=== PATIENT | female | born 1940 | race Caucasian/White ===

== ENCOUNTER → 2018-03-06 13:50 | Outpatient (CLI) | payer MEDICARE, OTHER, SELFPAY ==
--- NOTE | 2018-03-06 13:54 | DI.MG.S_ITS ---
UNILATERAL LEFT DIGITAL DIAGNOSTIC MAMMOGRAM POST LUMPECTOMY SHORT-TERM FOLLOW-UP: 03/06/2018 CLINICAL: Patient returns for a 6 month follow up of the left breast. Post biopsy. Personal history of breast cancer. Family history of breast cancer. Comparison is made to exams dated: 09/21/2017 mammogram, 08/31/2017 mammogram, and 08/21/2017 mammogram - [facility]. The tissue of the left breast is heterogeneously dense. This may lower the sensitivity of mammography. There is a biopsy clip in the left breast. No significant masses, calcifications, or other findings are seen in the breast. There has been no significant interval change. IMPRESSION: NEGATIVE There is no mammographic evidence of malignancy. A 1 year screening mammogram is recommended. This exam was interpreted at Station ID: [id number]. NOTE: For mammograms, a report in lay terms will be sent to the patient. Approximately 15% of breast malignancies will not be visualized mammographically. In the management of a palpable breast mass, a negative mammogram must not discourage biopsy of a clinically suspicious lesion. Electronically Signed By: Destiny sherwood/dylon:03/06/2018 14:58:27 copy to: Neto Uribe copy to: Spencer Dobbs letter sent: Normal Exam ACR BI-RADS Category 1: Negative 3341F
== END ==
PROVIDERS: PCP Family Medicine; Visit Provider Family Medicine
DX: Z08 Encounter for follow-up examination after completed treatment for malignant neoplasm (principal); Z85.3 Personal history of malignant neoplasm of breast; Z80.3 Family history of malignant neoplasm of breast
CPT/HCPCS: 77065; G0279

== ENCOUNTER 2018-05-17 10:36 | Day surgery (SDC) | payer MEDICARE, OTHER, SELFPAY ==
--- NOTE | 2018-05-17 | PATH_ITS ---
[facility] Accession Number: [id number] . 01 Material submitted: . PART A: DUODENAL BIOPSY PART B: GASTRIC BIOPSY PART C: GE JUNCTION BIOPSY . 02 Diagnosis: A. Biopsies, Duodenum: Fragments of normal-appearing small bowel mucosa. Normal delicate mucosal villi present. Negative for significant inflammation, dysplasia and malignancy. . B. Gastric Biopsies: Mild chronic gastritis involving antral mucosa. Negative for evidence of Helicobacter on H/E stain. Negative for intestinal metaplasia. Negative for dysplasia and malignancy. . C. GE Junction Biopsies: Fragments of squamous mucosa and gastric fundic-type mucosa with mild chronic inflammation. Negative for specialized metaplasia of Lockett's-type esophagus. Negative for evidence of Helicobacter on H/E stain. Negative for dysplasia and malignancy. Negative for squamous intraepithelial eosinophils. . 05/18/2018 . 02 Electronically signed: . Jesse Tony MD, Pathologist NPI- [id number] . 01 Gross description: . Received three formalin-filled containers each labeled with the patient's name. . A. In a container labeled duodenal, the specimen consists of a 0.3 cm portion of tissue. Entirely submitted in cassette A. B. In a container labeled gastric are two 0.1 to 0.3 cm portions of tissue. Entirely submitted in cassette B. C. In a container labeled GE junction are four fragments of tissue, which range in size from 0.1 to 0.4 cm. Entirely submitted in cassette C. ([facility] [place]:[id number]) /[facility] . 02 Pathologist provided ICD-10: K29.70 . 02 CPT . 319668, 420786, 513557 Performed at: [address] [facility] [place] [id number] MD Yahir Herrera MD Phone: [phone] Performed at: 02 [facility] [address] [place] [id number] MD Joce Keene MD Phone: [phone]
[2018-05-17 10:49] VITALS: BMI 35.2
[2018-05-17 11:01] VITALS: BP 123/74; PULSE 76; RESP 20; TEMP 36.3; O2SAT 95
[2018-05-17] MEDS: fentaNYL 250 MCG/5 ML INJ IV (11:02)
[2018-05-17] MEDS: SODIUM CHLORIDE 0.9% 1,000 ML 200 ML IV (11:03)
[2018-05-17] MEDS: MIDAZOLAM 5 MG/5 ML VIAL IV (11:03)
--- NOTE | 2018-05-17 11:04 | PM.PREOP ---
Pre-operative Note Interval Note Pre-op Check: Yes History & Physical Reviewed by Physician Changes: No
--- NOTE | 2018-05-17 11:32 | PM.OP.1 ---
Operative Date/Time/Diagnoses Date of procedure: 05/17/18 Time of procedure: 11:32 Pre-op diagnosis: Abdominal pain Gastroesophageal reflux disease Post-op diagnosis: same Procedure & Clinicians Procedure: Esophagogastroduodenoscopy with biopsies Same procedure as scheduled: Yes Indications: Progressive reflux symptoms on a maximum medication Surgeon: Avelina Urena Click Yes if Unassisted: Yes Anesthesia Type: Sedation Operative Notes Findings: 1. Normal duodenum 2. Mild antral gastritis 3. 5 cm hiatal hernia with the GE junction at 34 cm from the incisors 4. Irregular Z-line 5. Normal esophageal mucosa 6. Normal posterior oropharynx and vocal cords Closure Type: not applicable Specimen(s): other (Duodenum, antrum, GE junction-all cold forceps biopsies) Estimated Blood Loss (mL): 2 Procedure in detail: After obtaining informed consent, the patient was brought to the GI suite and placed in the left lateral decubitus position on the examination table. After placement of appropriate monitors, the patient was given incremental doses of Versed and Fentanyl until an appropriate level of sedation was achieved. A time out was held per SCOAP protocol. A bite block was gently placed between the patient's teeth. The endoscope was lubricated and then passed into the patient's posterior oropharynx. The esophagus was cannulated under direct vision and the scope was passed to the second portion of the duodenum without difficulty. The scope was then withdrawn with careful examination of all areas of the upper GI tract and mucosa. In the stomach, the instrument was retroflexed and the GE junction examined. The scope was straightened and the procedure continued with examination of the remainder of the upper GI tract. Findings are noted above. Air was aspirated from the stomach and the endoscope gently removed from the esophagus. The patient was allowed to awaken from sedation without difficulty and taken to the post-anesthesia care unit in good condition. Total sedation time 13 min Complications: none Condition: stable Disposition: PACU Plan for aftercare: 1. Discharge to home 2. We will contact you with pathology results and recommendations
[2018-05-17 11:41] VITALS: BP 112/75; PULSE 70; RESP 16; TEMP 36.6; O2SAT 98
[2018-05-17 11:46] VITALS: BP 98/70; PULSE 72; RESP 16
[2018-05-17 11:51] VITALS: BP 83/49; PULSE 73; RESP 16
[2018-05-17 11:54] VITALS: BP 118/68; PULSE 74; RESP 16; TEMP 36.8
[2018-05-17 12:05] VITALS: BP 131/70; PULSE 72; RESP 18; TEMP 36.7; O2SAT 95
== END 2018-05-17 12:18 | disposition home or self-care (01) ==
LOC: ENDO 10:37
PROVIDERS: PCP Family Medicine; Visit Provider Surgery
PROC: 0DJ08ZZ Inspection of Upper Intestinal Tract, Via Natural or Artificial Opening Endoscopic (ICD-10-PCS; CPT 43235; principal; 2018-05-17 12:00)
DX: K29.70 Gastritis, unspecified, without bleeding (principal); K21.9 Gastro-esophageal reflux disease without esophagitis; K44.9 Diaphragmatic hernia without obstruction or gangrene
CPT/HCPCS: 43239; 88305; 99152; J2250; J3010

== ENCOUNTER → 2018-09-27 11:01 | Outpatient (CLI) | payer MEDICARE, OTHER, SELFPAY ==
[2018-09-27 11:35] LABS: Add Manual Diff / Slide Review NO; Basophils Percent Auto 0.9 % (0-2); Eosinophils Percent Auto 3.2 % (2-4); Hematocrit 43.3 % (36-46); Hemoglobin 14.7 g/dL (12.0-16.0); Lymphocytes Percent Auto 33.8 % (25-40); Mean Corpuscular HGB Conc 33.9 % (30-36); Mean Corpuscular Hemoglobin 30.4 PG (26-34); Mean Corpuscular Volume 89.7 fL (80-100); Monocytes Percent Auto 9.4 % (3-14); Neutrophils Absolute Auto 2600 /uL (1500-7000); Neutrophils Percent Auto 52.7 % (50-75); Platelet Count 189 X10^3/uL (150-400); Red Blood Cell Count 4.82 X10^6/uL (4.0-5.2); Red Cell Distribution Width 14.9 % (11.6-14.8)
[2018-09-27 12:02] LABS: Alanine Aminotransferase 20 IU/L (9-52); Albumin 4.6 g/dL (3.5-5.0); Albumin Globulin Ratio 1.3 (1.0-2.8); Alkaline Phosphatase 63 U/L (38-126); Aspartate Aminotransferase 32 IU/L (14-36); BUN Creatinine Ratio 23.3 (6-22); Bilirubin Total 0.6 mg/dL (0.2-1.3); Blood Urea Nitrogen 21 mg/dL (7-17); Calcium 9.6 mg/dL (8.4-10.2); Carbon Dioxide 31 mmol/L (22-32); Chloride 98 mmol/L (98-107); Estimated Glomerular Filt Rate > 60.0 mL/min (>60); Globulin 3.5 g/dL (1.7-4.1); Glucose 109 mg/dL (80-110); HEMOLYSIS < 15 (0-50); Potassium 3.7 mmol/L (3.4-5.1); Sodium 143 mmol/L (137-145); Total Protein 8.1 g/dL (6.3-8.2)
[2018-09-28 15:13] LABS: Cancer Antigen 27.29 40 U/mL (< 38)
== END ==
PROVIDERS: Nurse Practitioner Gerontology; Family Provider Family Medicine; PCP Family Medicine; Visit Provider Internal Medicine Hematology & Oncology
DX: R89.7 Abnormal histological findings in specimens from other organs, systems and tissues (principal); Z86.000 Personal history of in-situ neoplasm of breast
CPT/HCPCS: 36415; 80053; 85025; 86300

== ENCOUNTER → 2018-10-13 10:44 | Outpatient (CLI) | payer MEDICARE, OTHER, SELFPAY ==
--- NOTE | 2018-10-13 11:00 | DI.MG.S_ITS ---
Patient Name: JAROCHO LEYVA date: 1940 Sex: F Attending Physician: David Indications: Date: 10/13/2018 11:00 At the request of: STEVE ROCHA Procedure: MM screening mammo BI BILATERAL DIGITAL SCREENING MAMMOGRAM 3D/2D WITH CAD POST LUMPECTOMY: 10/13/2018 CLINICAL: Routine screening. Personal history of left breast cancer. Family history of breast cancer. Comparison is made to exams dated: 08/21/2017 mammogram, 08/19/2016 mammogram, mammogram, and 08/18/2015 mammogram - Located [facility]. The tissue of both breasts is heterogeneously dense. This may lower the sensitivity of mammography. Current study was also evaluated with a Computer Aided Detection (CAD) system. There are stable benign dystrophic calcifications in both breasts. There is a stable benign post-surgical scar in the left breast at 2 o'clock middle depth. This correlates to post-operative changes. No other significant masses, calcifications, or other findings are seen in either breast. IMPRESSION: There is no mammographic evidence of malignancy. A 1 year screening mammogram is recommended. This exam was interpreted at Station ID: [id number]. NOTE: For mammograms, a report in lay terms will be sent to the patient. Approximately 15% of breast malignancies will not be visualized mammographically. In the management of a palpable breast mass, a negative mammogram must not discourage biopsy of a clinically suspicious lesion. Electronically Signed By: Nando ridley/dylon:10/13/2018 14:30:08 copy to: Neto Uribe Continued Report - Page 2 of 2 Patient Name: JAROCHO LEYVA date: 1940 Sex: F Attending Physician: David Indications: Date: 10/13/2018 11:00 At the request of: STEVE ROCHA Procedure: MM screening mammo BI letter sent: Normal Exam ACR BI-RADS Category 2: Benign Finding(s) 3342F
== END ==
PROVIDERS: Family Provider Family Medicine; PCP Family Medicine; Visit Provider Internal Medicine Hematology & Oncology
DX: Z12.31 Encounter for screening mammogram for malignant neoplasm of breast (principal); Z85.3 Personal history of malignant neoplasm of breast; Z80.3 Family history of malignant neoplasm of breast
CPT/HCPCS: 77063; 77067

== ENCOUNTER 2019-11-09 11:51 | Emergency (ER) | payer MEDICARE, OTHER, SELFPAY ==
[2019-11-09 11:51] VITALS: BP 135/90; PULSE 87; RESP 16; TEMP 36.7; O2SAT 97; BMI 33.3
--- NOTE | 2019-11-09 12:12 | ED_ITS ---
HPI - Syncope General Chief Complaint: Syncope Stated Complaint: syncope, fall Time Seen by Provider: 11/09/19 11:52 Source: EMS Mode of arrival: EMS History of Present Illness HPI narrative: 79-year-old woman with a history of breast cancer, peptic ulcer disease and recent issues with diarrhea. She was in her usual state of health this morning and went to the exchange at the [employer]. She and her were standing at the counter to pay her describes her insert drifting forward scraping her nose on the edge of the counter and then slumping to the floor. He was standing immediately by her side and helped her down so there's no significant trauma. He describes no seizure-like activity, no loss of bowel or bladder and spontaneous return of consciousness within minutes. She was completely back to normal alert and cognitively appropriate by time medics arrived. She has little memory of the event does not describe any palpitations or pain prior to the event nor any current leak. Her states that she was pale and diaphoretic during the event. Aside from the diarrhea that has been worked up and for which she is currently waiting for approval for ?a very expensive antibiotic? (? oral vanco?) She describes no chest pain, shortness of breath, urinary symptoms, or abdominal pain Related Data Home Medications Medication Instructions Recorded Confirmed CHOLECALCIFEROL (VITAMIN D3) 5,000 iu PO QDAY #0 07/11/12 10/28/19 (Vitamin D) Restasis 0.05 mg OP DAILY #0 07/11/12 10/28/19 ezetimibe [Zetia] 10 mg PO Q DAY #0 07/11/12 10/28/19 fenofibrate nanocrystallized 145 mg PO QDAY #0 07/11/12 10/28/19 [Tricor] gabapentin [Neurontin] 300 mg PO QDAY #0 07/11/12 10/28/19 hydrocortisone [Proctozone-HC] 2.5 % QDAY #0 07/11/12 10/28/19 hydrocortisone valerate 0.2 % QDAY #0 07/11/12 10/28/19 paroxetine HCl [Paxil] 10 mg PO QDAY #0 07/11/12 10/28/19 TRIAMCINOLONE ACETONIDE (TRIDERM 0.1 % TOPICAL BID #0 10/16/13 01/27/20 0.1% OINT) mupirocin 2 % TOPICAL DAILY #22 gm 07/17/13 10/28/19 cyanocobalamin (vitamin B-12) 1,000 mcg PO QDAY #0 05/18/16 10/28/19 potassium chloride [Klor-Con M20] 20 meq PO AMCC #0 tab 05/18/16 10/28/19 triamterene-hydrochlorothiazid 1 cap PO QDAY #0 cap 05/18/16 10/28/19 hydrochlorothiazide 50 mg tablet 50 mg PO DAILY 05/07/18 10/28/19 pantoprazole 40 mg tablet,delayed 40 mg PO DAILY 05/07/18 10/28/19 release ranitidine HCl 150 mg capsule 150 mg PO DAILY 05/07/18 10/28/19 venlafaxine 37.5 mg 37.5 mg PO BID cap 05/07/18 10/28/19 capsule,extended release 24 hr colestipol 1 g PO DAILY 10/28/19 10/28/19 ondansetron HCl [Zofran] 4 mg PO Q8H 10/28/19 10/28/19 Allergies Allergy/AdvReac Type Severity Reaction Status Date / Time aspirin Allergy Verified 11/09/19 12:08 Penicillins Allergy Verified 11/09/19 12:08 ragweed pollen Allergy Verified 11/09/19 12:08 atorvastatin [ATORVASTATIN] AdvReac Unknown Verified 11/09/19 12:08 plastic gloves AdvReac Uncoded 11/09/19 12:08 plastic tape AdvReac Uncoded 11/09/19 12:08 Review of Systems Review of Systems Narrative: All systems reviewed and are unremarkable except as noted in HPI and below Patient History Medical History Breast cancer (Acute) Esophageal varices (Acute) Peptic ulcer disease (Inactive) Surgical History History of knee replacement (Acute) Social History household members: spouse Smoking Status: Former smoker Smoking Status: Former smoker Alcohol type: beer Substance Use Type: does not use Exam Narrative Exam Narrative: General: Healthy appearing, in no acute distress. Able to give a complete and coherent history. Well-nourished well-developed HEENT: Moist mucous membranes, normal sclera with reactive pupils, minor abrasion over the bridge of her nose from her glasses Neck: No JVD, supple Respiratory: Lungs are clear to auscultation, no wheezing no rales no rhonchi. Full and symmetrical air movement Cardiac: Regular rate and rhythm no murmurs no bruits Abdomen: Soft nontender good bowel tones, no flank pain Skin: Warm and dry, no rashes Neurologic: Grossly neurologically intact with no obvious asymmetries or abnormalities Extremities: No trauma, well perfused, chronic 1+ edema. 1+ edema of upper extremities as well Psych: Cooperative, appropriate insight and affect Initial Vital Signs Initial Vital Signs: Vital Signs Temperature 98.0 F 11/09/19 11:51 Pulse Rate 87 11/09/19 11:51 Respiratory Rate 16 11/09/19 11:51 Blood Pressure 135/90 11/09/19 11:51 Pulse Oximetry 97 11/09/19 11:51 Course Course Course Narrative: 13:15 Work up is reassuring. Re-eval after 500cc fluid in. Feeling better. HR in bed is 66, standing at bedside up to 101. Will give full L of fluid, allow her to eat and drink and recheck 1400 HR laying down 75, standing and walking 80. Feeling better. Safe for home d/c Orders Ordered: ED Orders 11/09/19 12:05 EKG-12 Lead Stat 11/09/19 12:30 Complete Blood Count AUTO DIFF Stat Comprehensive Metabolic Panel Stat D Dimer Stat Troponin & CK Cardiac Panel Stat Sodium Chloride (Normal Saline 0.9%) 1,000 mls @ 150 mls/hr IV CONT FREDDIE Last Admin: 11/09/19 12:17 Dose: 150 mls/hr Documented by: RYAN Vital Signs Vital signs: Vital Signs - 8 hr 11/09/19 11:51 11/09/19 13:00 Temperature 98.0 F Pulse Rate 87 66 Respiratory Rate 16 16 Blood Pressure 135/90 Blood Pressure [Left Arm] 135/90 Pulse Oximetry 97 93 MDM - Syncope Medical Records Attestation: I reviewed the patient's medical records. Lab Data Attestation: I reviewed the patient's lab results. Result diagrams: 11/09/19 12:30 11/09/19 12:30 Labs: Lab Results 11/09/19 11/09/19 11/09/19 Range/Units 12:30 12:30 12:30 WBC 5.8 (4.5-11.0) X10^3/uL RBC 4.68 (4.0-5.2) X10^6/uL Hgb 14.2 (12.0-16.0) g/dL Hct 42.2 (36-46) % MCV 90.2 (80-100) fL MCH 30.3 (26-34) PG MCHC 33.6 (30-36) % RDW 15.4 H (11.6-14.8) % Plt Count 177 (150-400) X10^3/uL Neut % (Auto) 72.8 (50-75) % Lymph % (Auto) 17.6 L (25-40) % [place] % (Auto) 8.0 (3-14) % Eos % (Auto) 0.9 L (2-4) % Baso % (Auto) 0.7 (0-2) % Neut # (Auto) 4200 (7152-0202) /uL Lymph # (Auto) 1000 L (5069-2375) /uL [place] # (Auto) 500 (0-900) /uL Eos # (Auto) 0 (0-450) /uL Baso # (Auto) 0 (0-100) /uL D-Dimer 431 H (<230) ng/mL Sodium 141 (137-145) mmol/L Potassium 3.8 (3.4-5.1) mmol/L Chloride 104 (98-107) mmol/L Carbon Dioxide 28 (22-32) mmol/L BUN 18 H (7-17) mg/dL Creatinine 0.90 (0.52-1.04) mg/dL Estimated GFR > 60.0 (>60) mL/min BUN/Creatinine Ratio 20.0 (6-22) Glucose 95 (80-110) mg/dL Calcium 9.3 (8.4-10.2) mg/dL Total Bilirubin 0.5 (0.2-1.3) mg/dL AST 34 (14-36) IU/L ALT 25 (<35) IU/L Alkaline Phosphatase 72 (38-126) U/L Total Creatine Kinase 33 (30-135) U/L CK-MB (CK-2) TNP CK-MB (CK-2) Rel Index TNP Troponin I < 0.012 (0.01-0.034) ng/mL Total Protein 7.6 (6.3-8.2) g/dL Albumin 4.1 (3.5-5.0) g/dL Globulin 3.5 (1.7-4.1) g/dL Albumin/Globulin Ratio 1.2 (1.0-2.8) Urine Dip Bedside Urine Glucose Negative Bedside Urine Bilirubin - Negative Bedside Urine Ketone - Negative Urine Specific [place] 1.015 Bedside Urine Occult Blood - Negative Bedside Urine pH 7.0 Bedside Urine Protein - Negative Bedside Urine Urobilinogen - Negative Bedside Urine Nitrite - Negative Bedside Urine Leukocytes - Negative Esterase Age corrected D-dimer that would suggest an elevated level and need to proceed with CT study to rule out pulmonary embolism is 780. Her current 89 falls well below this cut off ECG Data Attestation: I personally reviewed and interpreted this ECG as follows: Interpretation: Sinus rhythm at 77. Normal axis. No acute ST T wave changes Q-waves in leadIII, AVF suggest prior inferior [place] no acute findings MDM Narrative Medical decision making narrative: 79-year-old woman presents with what appears to be orthostatic syncope improved after L of fluid. Workup is unremarkable otherwise. No evidence of PE, AZ, acute coronary syndrome, infection, stroke or suggestion of cardiac arrhythmia. Safe for home discharge Discharge Plan Departure Patient Disposition: Home Clinical Impression: Syncope due to orthostatic hypotension Fall Qualifiers: Encounter type: initial encounter Qualified Code(s): W19.XXXA - Unspecified fall, initial encounter Activity Restrictions/Additional Instructions: Thank you for coming in today, I'm sorry it was a bit of a change to your Monday plans. Your workup today was quite reassuring. I think that your blood pressure simply got a bit too low and that's why you slumped to the ground at the exchange. I'm very glad your was there to catch you so you didn't fall and actually hurt yourself. Your heart rate responded nicely to a liter of fluid. I would encourage you to keep up on your fluid intake. I wish you well. Prescriptions: No Action paroxetine HCl [Paxil] 10 MG tablet 10 mg PO QDAY Qty: 0 RF: 0 gabapentin [Neurontin] 300 MG capsule 300 mg PO QDAY Qty: 0 RF: 0 ezetimibe [Zetia] 10 MG tablet 10 mg PO Q DAY Qty: 0 RF: 0 fenofibrate nanocrystallized [Tricor] 145 MG tablet 145 mg PO QDAY Qty: 0 RF: 0 CHOLECALCIFEROL (VITAMIN D3) (Vitamin D) 5,000 iu PO QDAY Qty: 0 RF: 0 Restasis 1 EACH dropperette 0.05 mg OP DAILY Qty: 0 RF: 0 hydrocortisone valerate 0.2 % cream 0.2 % QDAY Qty: 0 RF: 0 hydrocortisone [Proctozone-HC] 2.5 % cream with perineal applicator 2.5 % QDAY Qty: 0 RF: 0 TRIAMCINOLONE ACETONIDE (TRIDERM 0.1% OINT) 0.1 % Topical BID Qty: 0 RF: 0 mupirocin 2 % ointment 2 % Topical DAILY Qty: 22 RF: 0 cyanocobalamin (vitamin B-12) 1,000 MCG tablet extended release 1,000 mcg PO QDAY Qty: 0 RF: 0 potassium chloride [Klor-Con M20] 20 MEQ tablet,ER particles/crystals 20 meq PO AMCC Qty: 0 RF: 0 triamterene-hydrochlorothiazid 50 MG/25 MG capsule 1 cap PO QDAY Qty: 0 RF: 0 venlafaxine [Effexor XR] 37.5 mg capsule,extended release 24hr 37.5 mg PO BID RF: 0 hydrochlorothiazide 50 mg tablet 50 mg PO DAILY RF: 0 pantoprazole 40 mg tablet,delayed release (DR/EC) 40 mg PO DAILY RF: 0 ranitidine HCl 150 mg capsule 150 mg PO DAILY RF: 0 ondansetron HCl [Zofran] 4 mg Tablet 4 mg PO Q8H RF: 0 colestipol 1 gram Tablet 1 g PO DAILY RF: 0 Referrals: Neto Uribe MD [Primary Care Provider] -
[2019-11-09] MEDS: SODIUM CHLORIDE 0.9% 1,000 ML 150 ML IV (12:17)
[2019-11-09 12:46] LABS: Add Manual Diff / Slide Review NO; Basophils Absolute Auto 0 /uL (0-100); Basophils Percent Auto 0.7 % (0-2); Eosinophils Absolute Auto 0 /uL (0-450); Eosinophils Percent Auto 0.9 % (2-4); Hematocrit 42.2 % (36-46); Hemoglobin 14.2 g/dL (12.0-16.0); Lymphocytes Absolute Auto 1000 /uL (1100-4500); Lymphocytes Percent Auto 17.6 % (25-40); Mean Corpuscular HGB Conc 33.6 % (30-36); Mean Corpuscular Hemoglobin 30.3 PG (26-34); Mean Corpuscular Volume 90.2 fL (80-100); Monocytes Absolute Auto 500 /uL (0-900); Neutrophils Absolute Auto 4200 /uL (1500-7000); Neutrophils Percent Auto 72.8 % (50-75); Platelet Count 177 X10^3/uL (150-400); Red Blood Cell Count 4.68 X10^6/uL (4.0-5.2); Red Cell Distribution Width 15.4 % (11.6-14.8); White Blood Cell Count 5.8 X10^3/uL (4.5-11.0)
[2019-11-09 12:49] LABS: D Dimer 431 ng/mL (<230)
[2019-11-09 12:50] LABS: Alanine Aminotransferase 25 IU/L (<35); Albumin 4.1 g/dL (3.5-5.0); Albumin Globulin Ratio 1.2 (1.0-2.8); Alkaline Phosphatase 72 U/L (38-126); Aspartate Aminotransferase 34 IU/L (14-36); Bilirubin Total 0.5 mg/dL (0.2-1.3); Blood Urea Nitrogen 18 mg/dL (7-17); Calcium 9.3 mg/dL (8.4-10.2); Carbon Dioxide 28 mmol/L (22-32); Chloride 104 mmol/L (98-107); Creatine Kinase 33 U/L (30-135); Estimated Glomerular Filt Rate > 60.0 mL/min (>60); Globulin 3.5 g/dL (1.7-4.1); Glucose 95 mg/dL (80-110); HEMOLYSIS 19 (0-50); Potassium 3.8 mmol/L (3.4-5.1); Sodium 141 mmol/L (137-145); Total Protein 7.6 g/dL (6.3-8.2)
[2019-11-09 13:00] VITALS: BP 135/90; PULSE 66; RESP 16; O2SAT 93
[2019-11-09 13:01] LABS: Troponin I < 0.012 ng/mL (0.01-0.034)
[2019-11-09 14:10] VITALS: BP 128/78; PULSE 68; RESP 18; O2SAT 98
--- NOTE | 2019-11-19 13:28 | PC.NURSE ---
NS DC total given 650ml stop time at 1410 waste 350ml.
== END 2019-11-09 14:25 | disposition home or self-care (01) ==
PROVIDERS: Emergency Provider Emergency Medicine; Family Provider Family Medicine; PCP Family Medicine
DX: I95.1 Orthostatic hypotension (principal); W19.XXXA Unspecified fall, initial encounter
CPT/HCPCS: 36415; 80053; 81003; 82550; 84484; 85025; 85379; 93005; 96360; 96361; 99284

== ENCOUNTER → 2019-11-18 12:15 | Outpatient (CLI) | payer MEDICARE, OTHER, SELFPAY ==
--- NOTE | 2019-11-18 | DI.MG.S_ITS ---
BILATERAL DIGITAL SCREENING MAMMOGRAM 3D/2D WITH CAD POST LUMPECTOMY: 11/18/2019 CLINICAL: Routine screening. Personal history of left breast cancer. Family history of breast cancer. Comparison is made to exams dated: 10/13/2018 mammogram, 08/21/2017 mammogram, and 08/19/2016 mammogram - [facility]. The tissue of both breasts is heterogeneously dense. This may lower the sensitivity of mammography. Current study was also evaluated with a Computer Aided Detection (CAD) system. There are benign calcifications in both breasts. There also are benign post operative findings in the left breast. No significant masses, calcifications, or other findings are seen in either breast. There has been no significant interval change. IMPRESSION: There is no mammographic evidence of malignancy. A 1 year screening mammogram is recommended. This exam was interpreted at Station ID: [id number]. NOTE: For mammograms, a report in lay terms will be sent to the patient. Approximately 15% of breast malignancies will not be visualized mammographically. In the management of a palpable breast mass, a negative mammogram must not discourage biopsy of a clinically suspicious lesion. Electronically Signed By: Nando ridley/dylon:11/19/2019 06:34:17 copy to: Neto Uribe letter sent: Normal Exam ACR BI-RADS Category 2: Benign Finding(s) 3342F
== END ==
PROVIDERS: Family Provider Family Medicine; PCP Family Medicine; Referring Provider Internal Medicine Hematology & Oncology; Visit Provider Internal Medicine Hematology & Oncology
DX: Z12.31 Encounter for screening mammogram for malignant neoplasm of breast (principal); Z85.3 Personal history of malignant neoplasm of breast; Z80.3 Family history of malignant neoplasm of breast
CPT/HCPCS: 77063; 77067

== ENCOUNTER → 2020-03-30 16:39 | Outpatient (CLI) | payer MEDICARE, OTHER, SELFPAY ==
[2020-03-30 17:40] LABS: Add Manual Diff / Slide Review NO; Basophils Absolute Auto 100 /uL (0-100); Basophils Percent Auto 1.1 % (0-2); Eosinophils Absolute Auto 200 /uL (0-450); Eosinophils Percent Auto 2.5 % (2-4); Hematocrit 40.7 % (36-46); Hemoglobin 13.8 g/dL (12.0-16.0); Lymphocytes Absolute Auto 2200 /uL (1100-4500); Mean Corpuscular Hemoglobin 30.8 PG (26-34); Mean Corpuscular Volume 90.6 fL (80-100); Monocytes Absolute Auto 500 /uL (0-900); Monocytes Percent Auto 7.5 % (3-14); Neutrophils Absolute Auto 3100 /uL (1500-7000); Neutrophils Percent Auto 51.9 % (50-75); Platelet Count 241 X10^3/uL (150-400); Red Cell Distribution Width 14.7 % (11.6-14.8)
[2020-03-30 18:28] LABS: HEMOLYSIS < 15 (0-50); Iron 96 ug/dL (37-170)
[2020-03-30 18:38] LABS: Ferritin 31 ng/mL (11-264)
[2020-03-30 18:39] LABS: Percent Iron Saturation 22 % (15-50); Total Iron Binding Capacity 427 ug/dL (265-497); Transferrin 339 mg/dL (206-381)
[2020-03-30 18:46] LABS: Free T4, Direct Thyroxine 1.14 ng/dL (0.78-2.19)
[2020-03-30 19:00] LABS: Thyroid Stimulating Hormone 0.262 uIU/mL (0.47-4.68)
== END ==
PROVIDERS: Family Provider Family Medicine; PCP Family Medicine; Referring Provider Physician Assistant; Visit Provider Physician Assistant
DX: L65.9 Nonscarring hair loss, unspecified (principal)
CPT/HCPCS: 36415; 82728; 83540; 83550; 84439; 84443; 85025

== ENCOUNTER → 2020-11-19 14:57 | Outpatient (CLI) | payer MEDICARE, OTHER, SELFPAY ==
--- NOTE | 2020-11-19 15:00 | DI.MG.S_ITS ---
BILATERAL DIGITAL SCREENING MAMMOGRAM 3D/2D WITH CAD: 11/19/2020 CLINICAL: Routine screening. Personal history of left breast cancer. Family history of breast cancer. Comparison is made to exams dated: 11/18/2019 mammogram, 10/13/2018 mammogram, and 08/21/2017 mammogram - [facility]. The tissue of both breasts is heterogeneously dense. This may lower the sensitivity of mammography. Current study was also evaluated with a Computer Aided Detection (CAD) system. There are calcifications in both breasts. There also are benign post operative findings in the left breast. No significant masses, calcifications, or other findings are seen in either breast. There has been no significant interval change. IMPRESSION: BENIGN There is no mammographic evidence of malignancy. A 1 year screening mammogram is recommended. This exam was interpreted at Station ID: [id number]. NOTE: For mammograms, a report in lay terms will be sent to the patient. Approximately 15% of breast malignancies will not be visualized mammographically. In the management of a palpable breast mass, a negative mammogram must not discourage biopsy of a clinically suspicious lesion. Electronically Signed By: Nando Elder M.D. at/:11/20/2020 11:15:33 copy to: Neto Uribe letter sent: Normal Exam ACR BI-RADS Category 2: Benign Finding(s) 3342F
[2020-11-19 17:10] LABS: Add Manual Diff / Slide Review NO; Basophils Absolute Auto 0 /uL (0-100); Basophils Percent Auto 0.6 % (0-2); Eosinophils Absolute Auto 100 /uL (0-450); Eosinophils Percent Auto 1.7 % (2-4); Hematocrit 41.6 % (36-46); Lymphocytes Absolute Auto 3000 /uL (1100-4500); Lymphocytes Percent Auto 45.2 % (25-40); Mean Corpuscular HGB Conc 33.6 % (30-36); Mean Corpuscular Hemoglobin 30.6 PG (26-34); Mean Corpuscular Volume 90.9 fL (80-100); Monocytes Absolute Auto 600 /uL (0-900); Neutrophils Absolute Auto 2900 /uL (1500-7000); Neutrophils Percent Auto 43.5 % (50-75); Platelet Count 220 X10^3/uL (150-400); Red Blood Cell Count 4.58 X10^6/uL (4.0-5.2); Red Cell Distribution Width 14.1 % (11.6-14.8); White Blood Cell Count 6.6 X10^3/uL (4.5-11.0)
[2020-11-19 17:29] LABS: Alanine Aminotransferase 15 IU/L (<35); Albumin 4.4 g/dL (3.5-5.0); Albumin Globulin Ratio 1.3 (1.0-2.8); Alkaline Phosphatase 46 U/L (38-126); Aspartate Aminotransferase 34 IU/L (14-36); BUN Creatinine Ratio 17.1 (6-22); Bilirubin Total 0.3 mg/dL (0.2-1.3); Blood Urea Nitrogen 22 mg/dL (7-17); Carbon Dioxide 31 mmol/L (22-32); Chloride 100 mmol/L (98-107); Estimated Glomerular Filt Rate 39.9 mL/min (>60); Globulin 3.5 g/dL (1.7-4.1); Glucose 94 mg/dL (80-110); HEMOLYSIS < 15 (0-50); Potassium 3.5 mmol/L (3.4-5.1); Sodium 139 mmol/L (137-145); Total Protein 7.9 g/dL (6.3-8.2)
[2020-11-20 06:28] LABS: Cancer Antigen 27.29 33.1 U/mL (0.0-38.6)
== END ==
PROVIDERS: Family Provider Family Medicine; PCP Family Medicine; Referring Provider Internal Medicine Hematology & Oncology; Visit Provider Internal Medicine Hematology & Oncology
DX: Z12.31 Encounter for screening mammogram for malignant neoplasm of breast (principal); Z86.000 Personal history of in-situ neoplasm of breast; Z80.3 Family history of malignant neoplasm of breast; M85.852 Other specified disorders of bone density and structure, left thigh; Z78.0 Asymptomatic menopausal state; Z82.62 Family history of osteoporosis
CPT/HCPCS: 36415; 77063; 77067; 77080; 80053; 85025; 86300

== ENCOUNTER → 2021-11-22 09:48 | Outpatient (CLI) | payer MEDICARE, OTHER, SELFPAY ==
--- NOTE | 2021-11-22 09:51 | DI.MG.S_ITS ---
BILATERAL DIGITAL SCREENING MAMMOGRAM 3D/2D WITH CAD: 11/22/2021 CLINICAL: Routine screening. Comparison is made to exams dated: 11/19/2020 mammogram, 11/18/2019 mammogram, and 10/13/2018 mammogram - [facility]. The tissue of both breasts is heterogeneously dense. This may lower the sensitivity of mammography. Current study was also evaluated with a Computer Aided Detection (CAD) system. There are benign calcifications in both breasts. There also are benign post operative findings in the left breast. No significant masses, calcifications, or other findings are seen in either breast. There has been no significant interval change. IMPRESSION: BENIGN There is no mammographic evidence of malignancy. A 1 year screening mammogram is recommended. This exam was interpreted at Station ID: [id number]. NOTE: For mammograms, a report in lay terms will be sent to the patient. Approximately 15% of breast malignancies will not be visualized mammographically. In the management of a palpable breast mass, a negative mammogram must not discourage biopsy of a clinically suspicious lesion. Electronically Signed By: Connor Cunningham acr/penrad:11/23/2021 08:37:25 copy to: Neto Uribe letter sent: Normal Exam ACR BI-RADS Category 2: Benign Finding(s) 3342F
== END ==
PROVIDERS: Family Provider Family Medicine; PCP Family Medicine; Referring Provider Internal Medicine Hematology & Oncology; Visit Provider Internal Medicine Hematology & Oncology
DX: Z12.31 Encounter for screening mammogram for malignant neoplasm of breast (principal)
CPT/HCPCS: 77063; 77067

== ENCOUNTER → 2022-12-16 14:19 | Outpatient (CLI) | payer MEDICARE, OTHER, SELFPAY ==
--- NOTE | 2022-12-16 14:22 | DI.MG.S_ITS ---
BILATERAL DIGITAL SCREENING MAMMOGRAM 3D/2D WITH CAD: 12/16/2022 CLINICAL: Routine screening. Personal history of left breast cancer. Family history of breast cancer. Comparison is made to exams dated: 11/22/2021 mammogram, 11/19/2020 mammogram, 11/18/2019 mammogram, and 10/13/2018 mammogram - [facility]. Both breasts are heterogeneously dense, which may obscure small masses (category c / 51-75% glandular tissue). Current study was also evaluated with a Computer Aided Detection (CAD) system. There are benign calcifications in both breasts. There also are benign post operative findings in the left breast. No significant masses, calcifications, or other findings are seen in either breast. There has been no significant interval change. IMPRESSION: BENIGN There is no mammographic evidence of malignancy. A 1 year screening mammogram is recommended. This exam was interpreted at Station ID: [id number]. NOTE: For mammograms, a report in lay terms will be sent to the patient. Approximately 15% of breast malignancies will not be visualized mammographically. In the management of a palpable breast mass, a negative mammogram must not discourage biopsy of a clinically suspicious lesion. Electronically Signed By: Tracey flores/dylon:12/16/2022 17:46:23 copy to: Neto Uribe letter sent: Normal Exam ACR BI-RADS Category 2: Benign Finding(s) 3342F
== END ==
PROVIDERS: Family Provider Family Medicine; PCP Family Medicine; Referring Provider Internal Medicine Hematology & Oncology; Visit Provider Internal Medicine Hematology & Oncology
DX: Z12.31 Encounter for screening mammogram for malignant neoplasm of breast (principal); Z86.000 Personal history of in-situ neoplasm of breast; Z80.3 Family history of malignant neoplasm of breast
CPT/HCPCS: 77063; 77067